=== PATIENT | male | born 2005 | race Asian ===

== ENCOUNTER 2025-07-25 10:37 | Emergency (ER) | payer OTHER ==
[2025-07-25] MEDS ORDERED: Rabies Vaccine Human 2.5 UNITS VIAL ONE (11:41)
[2025-07-25] MEDS ORDERED: Rabies Immune Globulin/PF 300 UNITS/ML VIAL ONE (11:42)
== END 2025-07-25 12:13 | disposition home or self-care (01) ==
LOC: ERS 10:37
DX: S60.571A Other superficial bite of hand of right hand, initial encounter (principal); Z23 Encounter for immunization; W55.51XA Bitten by raccoon, initial encounter
CPT/HCPCS: 90375; 90471; 90472; 90675; 90715; 96372

== ENCOUNTER → 2025-07-28 | Day surgery (SDC) | payer OTHER ==
[~2025-07-28] MED LIST: Rabies Vaccine Human 2.5 UNITS VIAL ONE
== END ==
LOC: ER/OP 10:52
PROVIDERS: ATTEND Pathology Anatomic Pathology & Clinical Pathology
DX: Z29.14 Encounter for prophylactic rabies immune globulin (principal)
CPT/HCPCS: 90675

== ENCOUNTER → 2025-08-01 | Day surgery (SDC) | payer OTHER | LOC: ER/OP 10:26 | DX: Z29.14 Encounter for prophylactic rabies immune globulin (principal) | CPT/HCPCS: 90675 ==